=== PATIENT | female | born 1960 | race Caucasian/White ===

== ENCOUNTER 2023-01-13 16:46 | Inpatient (IN) ==
[2023-01-13] MEDS ORDERED: Heparin DRIP 25,000 UNITS BAG 25,000 UNITS/500 ML BAG IV SCH (17:30)
[2023-01-13] MEDS ORDERED: Nicotine PATCH 14 MG/24 HR PATCH TRANSDERM ONE (17:51)
[2023-01-13] MEDS ORDERED: Heparin 5000 UNITS/ML 1 mL VIAL IV SCH (18:00)
[2023-01-13 18:42] LABS: ABS Basophils 0.1 10^3/uL (0.0-0.1); ABS Eosinophils 0.4 10^3/uL (0.0-0.5); ABS Lymphocytes 3.2 10^3/uL (1.0-4.8); ABS Monocytes 0.6 10^3/uL (0.0-0.9); ABS Neutrophils 7.3 10^3/uL (1.5-7.6); ABS Nucleated RBC 0.01 10^3/ul; Eosinophil % 3.4 %; Hematocrit 35.9 % (35-45); Hemoglobin 12.2 g/dL (11.5-14.3); Lymphocyte % 27.3 %; Mean Corpuscular Hemoglobin 31.3 pg (27-33); Mean Corpuscular Volume 92.2 fL (80-97); Nucleated Red Blood Cells % 0.1 /100 WBC (0.0-0.4); Platelet Count 275 10^3/uL (150-450); Red Blood Count 3.89 10^6/uL (3.63-4.92); Red Cell Distribution Width 13.7 % (12-17); White Blood Count 11.5 10^3/uL (3.8-11.8)
[2023-01-13 20:22] LABS: Albumin 3.7 g/dL (3.2-5.2); Calcium 8.7 mg/dL (8.6-10.3); Free T4 0.89 ng/dL (0.61-1.12); Potassium 4.2 mmol/L (3.5-5.0); Total Bilirubin 0.2 mg/dL (0.2-1.0)
[2023-01-13 20:23] LABS: Albumin/Globulin Ratio 1.8 (1-3); Creatinine, Serum 0.8 mg/dL (0.51-0.95); Globulin 2.1 g/dL (2-4); Magnesium 2.1 mg/dL (1.9-2.7); TSH Ultra Thyroid Stim Horm 2.74 mcIU/mL (0.34-5.60); Total Protein 5.8 g/dL (6.4-8.9); eGFR CKD-EPI 84.3 (>60)
[2023-01-13] MEDS ORDERED: CMCS: Progesterone MICRONIZ 200 (NF) CAP PO SCH (21:00)
[2023-01-14 04:21] LABS: ABS Basophils 0.1 10^3/uL (0.0-0.1); ABS Eosinophils 0.4 10^3/uL (0.0-0.5); ABS Lymphocytes 3.2 10^3/uL (1.0-4.8); ABS Monocytes 0.3 10^3/uL (0.0-0.9); Eosinophil % 4.7 %; Hematocrit 34.8 % (35-45); Lymphocyte % 35.2 %; Mean Corpuscular Hemoglobin 31.8 pg (27-33); Mean Corpuscular Hgb Conc 34.4 g/dL (31-36); Mean Corpuscular Volume 92.3 fL (80-97); Mean Platelet Volume 7.9 fL (7.5-11.2); Platelet Count 243 10^3/uL (150-450); Red Blood Count 3.77 10^6/uL (3.63-4.92); Red Cell Distribution Width 14.1 % (12-17); White Blood Count 9.1 10^3/uL (3.8-11.8)
[2023-01-14 06:14] LABS: Potassium 4.1 mmol/L (3.5-5.0)
[2023-01-14 06:19] LABS: Calcium 8.3 mg/dL (8.6-10.3)
[2023-01-14 06:20] LABS: Creatinine, Serum 0.79 mg/dL (0.51-0.95); eGFR CKD-EPI 85.6 (>60)
[2023-01-14 09:51] LABS: HDL Cholesterol 42.7 mg/dL
[2023-01-14] MEDS ORDERED: Midazolam 5 mg/5 ml VIAL 1 mg/ml 5 ml VIAL (5 mg) ONE ×2 (10:29→13:51)
[2023-01-14] MEDS ORDERED: Heparin 1,000 UNIT/ML 10 ml (10,000 UNITS) CATHLAB/DIALYSIS ONE ×3 (10:30→13:51)
[2023-01-14] MEDS ORDERED: Heparin 2 UNITS/ML 1000 mls 3,000 ML IV ONE (10:30)
[2023-01-14] MEDS ORDERED: nitroGLYCERIN DRIP 25,000 MCG/250 ML BTL ONE ×3 (10:30→13:52)
[2023-01-14] MEDS ORDERED: Iohexol 350 (CONTRAST) 200 ML MDV IV ONE ×2 (10:30→13:52)
[2023-01-14] MEDS ORDERED: fentaNYL 100 mcg/2 ml 50 MCG/ML VIAL ONE ×3 (10:30→13:51)
[2023-01-14] MEDS ORDERED: niCARdipine 0.1MG/ML IVPREMIX 0 MG/0 ML BAG IV ONE (10:30)
[2023-01-14] MEDS ORDERED: Lidocaine 1% MPF 5 ML VIAL ONE ×2 (10:30→13:52)
[2023-01-14] MEDS ORDERED: Iohexol 350 (CONTRAST) 100 ML PAK IV ONE ×3 (10:30→13:52)
[2023-01-14] MEDS: NS 0.9% 1000 ml BAG 1,000 ML IV SCH (10:34)
[2023-01-14 10:48] LABS: Activated Partial Thrombo Time 50.9 seconds (26.0-38.0); INR 0.95 (0.88-1.18)
[2023-01-14] MEDS ORDERED: fentaNYL 100 mcg/2 ml 50 MCG/ML VIAL IV SLOW PU ONE (10:51)
[2023-01-14] MEDS ORDERED: Midazolam 10 mg/10 ml VIAL 1 mg/ml 10 ml VIAL (10 mg) IV SLOW PU ONE (10:51)
[2023-01-14] MEDS ORDERED: Flumazenil 0.5 mg/5 ml 0.1 MG/ML 5 ml VIAL IV PRN (10:51)
[2023-01-14] MEDS ORDERED: Naloxone 0.4 mg VIAL 0.4 mg/ml 1 ml VIAL IV PUSH PRN (10:51)
[2023-01-14 10:57] LABS: High Sensitivity Troponin 1 Hr 1351 pg/mL (<15)
[2023-01-14] MEDS ORDERED: Atropine 0.1 MG/ML 10 ml SYR (1 mg) ONE (11:23)
[2023-01-14] MEDS ORDERED: hydrALAZINE 20 mg/ml 1 ML Vial IV ONE (12:22)
[2023-01-14] MEDS ORDERED: Ondansetron 4 mg VIAL 2 MG/ML 2 ml VIAL IV PRN (12:55)
[2023-01-14] MEDS ORDERED: NS 0.9% 1000 ml BAG 1,000 ML IV SCH (13:00)
[2023-01-14] MEDS ORDERED: Ondansetron 4 mg VIAL 2 MG/ML 2 ml VIAL ONE (13:04)
[2023-01-14] MEDS ORDERED: niCARdipine 0.1MG/ML IVPREMIX 20 MG/200 ML BAG IV ONE (13:52)
[2023-01-14] MEDS ORDERED: Heparin 2 UNITS/ML 1000 mls 1,000 ML IV ONE (13:52)
[2023-01-14] MEDS ORDERED: Heparin 2 UNITS/ML 1000 mls 2,000 ML IV ONE (13:52)
[2023-01-14] MEDS ORDERED: nitroGLYCERIN DRIP 25,000 MCG/250 ML BTL IV SCH (15:00)
[2023-01-14] MEDS: Nicotine PATCH 21 MG/24 HR PATCH TRANSDERM SCH (17:01)
[2023-01-15] MEDS: NS 0.9% 1000 ml BAG 1,000 ML IV SCH (00:37)
[2023-01-15 04:29] LABS: ABS Basophils 0.1 10^3/uL (0.0-0.1); ABS Eosinophils 0.2 10^3/uL (0.0-0.5); ABS Lymphocytes 1.3 10^3/uL (1.0-4.8); ABS Monocytes 0.7 10^3/uL (0.0-0.9); ABS Neutrophils 8.8 10^3/uL (1.5-7.6); ABS Nucleated RBC 0.01 10^3/ul; Eosinophil % 1.9 %; Hematocrit 36.7 % (35-45); Hemoglobin 12.7 g/dL (11.5-14.3); Mean Corpuscular Hemoglobin 31.5 pg (27-33); Mean Corpuscular Hgb Conc 34.7 g/dL (31-36); Mean Corpuscular Volume 90.7 fL (80-97); Mean Platelet Volume 7.8 fL (7.5-11.2); Nucleated Red Blood Cells % 0.1 /100 WBC (0.0-0.4); Platelet Count 274 10^3/uL (150-450); Red Blood Count 4.05 10^6/uL (3.63-4.92); Red Cell Distribution Width 13.9 % (12-17); White Blood Count 11.2 10^3/uL (3.8-11.8)
[2023-01-15 05:06] LABS: Albumin 3.7 g/dL (3.2-5.2); Albumin/Globulin Ratio 1.9 (1-3); Creatinine, Serum 0.82 mg/dL (0.51-0.95); Globulin 1.9 g/dL (2-4); Phosphorus 3.9 mg/dL (2.5-5.0); Potassium 4.3 mmol/L (3.5-5.0); Total Bilirubin 0.5 mg/dL (0.2-1.0); Total Protein 5.6 g/dL (6.4-8.9); eGFR CKD-EPI 81.8 (>60)
[2023-01-15] MEDS: Nicotine PATCH 21 MG/24 HR PATCH TRANSDERM SCH (07:51)
[2023-01-15] MEDS ORDERED: ESTRADIOL TRANSDERM SCH (09:00)
[2023-01-15] MEDS ORDERED: Labetalol IV 5 MG/ML 20 ml VIAL IV PUSH PRN (18:50)
[2023-01-16 05:47] LABS: ABS Basophils 0.1 10^3/uL (0.0-0.1); ABS Eosinophils 0.2 10^3/uL (0.0-0.5); ABS Lymphocytes 1.3 10^3/uL (1.0-4.8); ABS Monocytes 0.8 10^3/uL (0.0-0.9); ABS Neutrophils 10.1 10^3/uL (1.5-7.6); ABS Nucleated RBC 0.01 10^3/ul; Eosinophil % 1.4 %; Hematocrit 36.1 % (35-45); Hemoglobin 12.4 g/dL (11.5-14.3); Lymphocyte % 10.8 %; Mean Corpuscular Hemoglobin 31.1 pg (27-33); Mean Corpuscular Hgb Conc 34.3 g/dL (31-36); Mean Corpuscular Volume 90.8 fL (80-97); Mean Platelet Volume 8.1 fL (7.5-11.2); Platelet Count 256 10^3/uL (150-450); Red Blood Count 3.98 10^6/uL (3.63-4.92); Red Cell Distribution Width 13.5 % (12-17); White Blood Count 12.4 10^3/uL (3.8-11.8)
[2023-01-16 06:13] LABS: Potassium 4.3 mmol/L (3.5-5.0)
[2023-01-16 06:14] LABS: Calcium 9.1 mg/dL (8.6-10.3); Creatinine, Serum 0.89 mg/dL (0.51-0.95); eGFR CKD-EPI 74.2 (>60)
[2023-01-16] MEDS: Nicotine PATCH 21 MG/24 HR PATCH TRANSDERM SCH ×2 (06:14→09:22)
[2023-01-16 12:02] VITALS: BP 138/75
== END 2023-01-16 13:30 | disposition home or self-care (01) | DRG 174 ==
LOC: EDHOLD 16:46 → ED 16:46 → OBSVTOIN 17:53 → SUATTDRO 17:53 → ICU 21:56 → MEDTELE 01-15 17:05
PROVIDERS: ADMIT Hospitalist; ATTEND Internal Medicine